=== PATIENT | female | born 1990 | race Caucasian/White ===

== ENCOUNTER 2021-02-27 09:52 | Emergency (ER) | payer OTHER, SELFPAY ==
[2021-02-27 10:01] VITALS: BP 101/71; PULSE 77; RESP 14; TEMP 36.7; O2SAT 10
--- NOTE | 2021-02-27 10:02 | ED.HA ---
HPI - Headache General Chief Complaint: Headache Stated Complaint: Headache Time Seen by Provider: 02/27/21 10:02 Source: patient and RN notes reviewed History of Present Illness HPI Narrative: Patient is a 30-year-old female who presents the urgent care with complaints of dizziness. Patient states that she did have intermittent headache since Friday but those have resolved with Tylenol. Patient currently denies of any headache. States that she was drinking on Friday and when she went home she hit her head on the wall. Patient states that since then she has had dizziness with intermittent nausea and vomited twice today. Patient denies of any loss of consciousness at the time of her fall. Denies of any other injuries from the fall. Denies of any vision changes. Patient has been driving since the incident however brought a pole truck driver with her today. No other acute complaints. No acute distress noted. Patient read the plan of care. Some parts of this dictation were generated by voice recognition software and may contain typographical and/or grammatical inaccuracies. Related Data Home Medications Medication Instructions Recorded Confirmed buspirone 7.5 mg PO DAILY 02/27/21 02/27/21 citalopram 40 mg PO DAILY 02/27/21 02/27/21 levothyroxine 75 mcg PO DAILY 02/27/21 02/27/21 Allergies Allergy/AdvReac Type Severity Reaction Status Date / Time No Known Allergies Allergy Verified 02/27/21 10:08 Review of Systems Review of Systems: CONSTITUTIONAL: Denies fever, chills, or sweats. EYES: Denies visual changes, redness, or discharge. ENT: Denies rhinorrhea, congestion, sore throat, or otalgia. CARDIOVASCULAR: Denies chest pain, palpitations, or edema. RESPIRATORY: Denies cough or dyspnea. GASTROINTESTINAL: Reports of intermittent nausea with 2 episodes of vomiting GENITOURINARY: Denies dysuria or hematuria. SKIN: Denies rash or itching. MUSCULOSKELETAL: Denies back pain, joint pain, or myalgia. NEUROLOGIC: Reports of intermittent dizziness All other systems reviewed are negative, except as documented in HPI. PMFSH Comments At the time of my signature, I reviewed and agree with the nursing past medical, surgical, social, and family history. There is no relevant family history pertinent to the patient complaint. Exam Narrative: GENERAL: This is a well-nourished, well-developed patient, appears anxious and tearful HEAD: normocephalic, atraumatic. EYES: PERRL. Sclera clear/white. Vision is grossly intact. EARS: External ears normal, auditory canals clear and without drainage, TMs normal without perforation. Hearing grossly intact. NOSE: External nose normal with no obvious nasal discharge, nares without redness, no rhinorrhea. THROAT: Mucous membranes moist, posterior pharynx clear. NECK: Neck supple CARDIOVASCULAR: Regular rate and rhythm without murmurs, gallops, or rubs. RESPIRATORY: Clear to auscultation. Breath sounds equal bilaterally. No wheezes, rales, or rhonchi. SKIN: warm, intact with no suspicious lesions or rash, good texture and turgor. NEURO: awake, alert, and oriented to person, place and time. There were no obvious focal neurologic abnormalities. No obvious neurological deficits EXTREMITIES: No clubbing, cyanosis, or edema. Course Vital Signs Vital signs: Vital Signs Temperature 98.0 F 02/27/21 10:01 Pulse Rate 77 02/27/21 10:01 Respiratory Rate 14 02/27/21 10:01 Blood Pressure 101/71 02/27/21 10:01 Pulse Oximetry 10 L 02/27/21 10:01 Temperature 98.0 F 02/27/21 10:01 Pulse Rate 77 02/27/21 10:01 Respiratory Rate 14 02/27/21 10:01 Blood Pressure 101/71 02/27/21 10:01 Pulse Oximetry 10 L 02/27/21 10:01 Reviewed MDM - Headache MDM Narrative Medical decision making narrative: Due to dizziness post recent head injury?advised follow-up in the emergency room. Patient states that she has a follow-up with her PCP tomorrow morning and will discuss any further necessary follow-up a
== END 2021-02-27 10:32 | disposition left against medical advice (07) ==
PROVIDERS: Emergency Provider Nurse Practitioner Family
DX: R42 Dizziness and giddiness (principal); E03.9 Hypothyroidism, unspecified; F41.9 Anxiety disorder, unspecified; F32.9 Major depressive disorder, single episode, unspecified
CPT/HCPCS: 99213; G0463